=== PATIENT | female | born 1960 | race Caucasian/White ===

== ENCOUNTER 2020-01-20 07:59 | Day surgery (SDC) | payer BC ==
[~2020-01-20 07:59] MED LIST: Lactated Ringers 1,000 ML IV SCH; Lidocaine 1% 4 ML ONE; Lidocaine 1%/Sod Bicarbonate in NS 8.4% 1 ML Syringe IDERM PRN; Midazolam 1 MG/ML 2 ML SDV ONE; Propofol 200 MG/20 ML SDV ONE; Sodium Chloride 0.9% 10 ML Syringe FLUSH PRN; fentaNYL 100 MCG/2 ML SDV ONE
--- NOTE | 2020-01-20 08:27 | PCM.PREANE ---
Preanesthetic Assessment - Procedure Proposed Procedure: colonoscopy and ugi - Anesthesia/Transfusion/Family Hx Anesthesia History: Prior Anesthesia Without Reaction Family History of Anesthesia Reaction: No Transfusion History: No Prior Transfusion(s) - Review of Systems General: No Symptoms Pulmonary: Other (cold starting- can feel glands starting to swell) Cardiovascular: No Symptoms, Dyspnea on Exertion (because I am overweight) Gastrointestinal: No Symptoms Neurological: No Symptoms Other: Reports: Depression, Anxiety - Physical Assessment NPO Status Date: 01/20/20 (439 finished prep) NPO Status Time: 04:40 Vital Signs: 146/83 77 96% 19 98.8 Height: 5 ft 11 in Weight: 126 kg ASA Class: 2 Mental Status: Alert & Oriented x3 Airway Class: Mallampati = 2 Dentition: Reports: Normal Dentition Thyro-Mental Finger Breadths: 3 Mouth Opening Finger Breadths: 3 ROM/Head Extension: Full Lungs: Clear to Auscultation, Normal Respiratory Effort Cardiovascular: Regular Rate, Regular Rhythm, No Murmurs - Allergies Allergies/Adverse Reactions: Allergies Allergy/AdvReac Type Severity Reaction Status Date / Time No Known Allergies Allergy Verified 01/19/20 13:24 - Blood Blood Available: No - Acknowledgements Anesthesia Type Planned: MAC Pt an Appropriate Candidate for the Planned Anesthesia: Yes Alternatives and Risks of Anesthesia Discussed w Pt/Guardian: Yes Pt/Guardian Understands and Agrees with Anesthesia Plan: Yes PreAnesthesia Questionnaire HEENT History: Reports: Impaired Vision Cardiovascular History: Reports: Other (See Below) Other Cardiovascular History: fluid retention- prn Respiratory History: Reports: None Gastrointestinal History: Reports: Other (See Below) Other Gastrointestinal History: dysphagia Genitourinary History: Reports: Urinary Incontinence [place] History: Reports: Other (See Below) Other OB/BYN History: hot flashes, post menopausal bleeding, abnormal uterine bleeding, Musculoskeletal History: Reports: Other (See Below) Other Musculoskeletal History: left hip trochanteric bursitis, joint pain, myalgia, joint pain, plantar fasciitis, left fibula fracutre Neurological History: Reports: None Psychiatric History: Reports: Anxiety, Depression Endocrine/Metabolic History: Reports: Obesity/BMI 30+, Vitamin D Deficiency Hematologic History: Reports: None Immunologic History: Reports: None Oncologic (Cancer) History: Reports: None Dermatologic History: Reports: Other (See Below) Other Dermatologic History: alopecia, eczema, skin tags - Past Surgical History Head Surgeries/Procedures: Reports: None HEENT Surgical History: Reports: None Cardiovascular Surgical History: Reports: None Respiratory Surgical History: Reports: None GI Surgical History: Reports: None Female Surgical History: Reports: None Male Surgical History: Reports: None Endocrine Surgical History: Reports: None Neurological Surgical History: Reports: None Musculoskeletal Surgical History: Reports: Ganglion Cyst, Other (See Below) Other Musculoskeletal Surgeries/Procedures:: right foot bunionectomy Oncologic Surgical History: Reports: None Dermatological Surgical History: Reports: None - SUBSTANCE USE Smoking Status *Q: Never Smoker Tobacco Use Within Last Twelve Months: No Second Hand Smoke Exposure: No Days Per Week of Alcohol Use: 1 Recreational Drug Use History: No - HOME MEDS Home Medications: Home Meds Amitriptyline [Elavil] 10 mg PO BEDTIME PRN 05/21/16 [History] Cholecalciferol (Vitamin D3) [Vitamin D3] 2,000 unit PO DAILY 01/19/20 [History] Escitalopram [Lexapro] 10 mg PO DAILY 01/19/20 [History] Multivitamin [Daily Multiple Vitamin] 1 tab PO DAILY 01/19/20 [History] Fairview-3/DHA/Epa/Fish Oil [[place]view 3 500 Softgel] 1 cap PO DAILY 01/19/20 [History] Triamcinolone Acetonide [Triamcinolone Acetonide 0.1% Crm] 1 dose TOP BID PRN [History] - CURRENT (IN HOUSE) MEDS Current Meds: Current Medications Lactated Ringer's (Ringers, Lactated) 1,000 mls @ 125 mls/hr IV ASDIRECTED GRANT Stop: 01/20/20 23:00 Lidocaine/Sodium Bicarbonate (Buffered Lidocaine 1% In Ns 8.4%) 0.25 ml IDERM ONETIME PRN PRN Reason: Prior to IV Start Stop: 01/20/20 18:00 Sodium Chloride (Saline Flush) 10 ml FLUSH ASDIRECTED PRN PRN Reason: Keep Vein Open Stop: 01/20/20 18:00 Discontinued Medications Fentanyl (Sublimaze) Confirm Administered Dose 100 mcg .ROUTE .STK-MED ONE Stop: 01/20/20 07:13 Lidocaine HCl (Xylocaine-Mpf 1%) Confirm Administered Dose 4 mls @ as directed .ROUTE .STK-MED ONE Stop: 01/20/20 07:15 Midazolam HCl (Versed 1 Mg/Ml) Confirm Administered Dose 2 mg .ROUTE .STK-MED ONE Stop: 01/20/20 07:13 Propofol (Diprivan 20 Ml) Confirm Administered Dose 200 mg .ROUTE .STK-MED ONE Stop: 01/20/20 07:12 Propofol (Diprivan 20 Ml) Confirm Administered Dose 200 mg .ROUTE .STK-MED ONE Stop: 01/20/20 07:14
[2020-01-20] MEDS ORDERED: Glycopyrrolate 0.2 MG/ML SDV ONE (09:28)
[2020-01-20] MEDS ORDERED: Propofol 200 MG/20 ML SDV ONE ×2 (09:30→09:51)
--- NOTE | 2020-01-20 10:09 | PCM48HPAN ---
Post Anesthesia Note - EVALUATION WITHIN 48HRS OF ANESTHETIC Vital Signs in Normal Range: Yes Patient Participated in Evaluation: Yes Respiratory Function Stable: Yes Airway Patent: Yes Cardiovascular Function Stable: Yes Hydration Status Stable: Yes Pain Control Satisfactory: Yes Nausea and Vomiting Control Satisfactory: Yes Mental Status Recovered: Yes Vital Signs: Last Vital Signs Temp 37.1 C 01/20/20 08:10 Pulse 72 01/20/20 08:10 Resp 19 01/20/20 08:10 BP 146/83 H 01/20/20 08:10 Pulse Ox 96 01/20/20 08:10
--- NOTE | 2020-01-20 10:14 | PCM.PRNOTE ---
- Free Text/Narrative Note: Date: 01/20/2020 Procedure: diagnostic upper endoscopy, screening colonoscopy Endoscopist: Amaury Zimmer MD Findings: polypoid lesion at gastroesophageal junction. No hiatal hernia. No evidence of esophagitis or metaplasia. A few pedunculated polyps were removed on colonoscopy. Prep was fair. Detailed Report: The patient was taken to the endoscopy suite and placed in left lateral decubitus position. Time out was performed and monitored anesthesia care was initiated. A bite-block was placed and lubricated endoscope inserted into the mouth and advanced to the second portion of the duodenum. Duodenal mucosal appeared normal. The pylorus and antrum appeared grossly normal, there was no ulceration or inflammatory change noted of the gastric mucosa. On retroflexion , the fundus appeared normal, there is no evidence of hiatal hernia. On withdrawal of the scope into the distal esophagus, a polypoid lesion was noted at the anterolateral aspect near the Z line. A sample biopsy of this lesion was obtained with cold forceps. No additional esophageal pathology was noted on withdrawal of the scope. Air was suctioned from the stomach and the esophagus as the scope was withdrawn, and attention was turned to colonoscopy. Visual inspection of the anus revealed no gross abnormality. Digital rectal exam was unremarkable. A lubricated colonoscope was inserted transanally and advanced to the cecum. The ileocecal valve and appendiceal orifice were visualized. The prep was fair, with a fair amount of jacobson liquid yellow effluent throughout. The mucosal surfaces were carefully inspected on slow withdrawal of the scope. A few polyps were identified, one subcentimeter polyp in the a sending colon was biopsied with hot forceps, and the base was fulgurated. A larger pedunculated polyp was identified in the proximal sigmoid colon, this was taken with a snare without cautery applied due to safety concern /based on the location of the polyp. Just distal to this polyp, smaller polyp was identified which was taken with a snare as well with heat applied. There were very few scattered diverticula noted, most prominently in the sigmoid colon. On retroflexion of the scope within the rectum no hemorrhoidal disease was appreciated. The patient tolerated the procedure well. Amaury Zimmer MD General Surgery
[2020-01-20 10:53] VITALS: BP 134/76; PULSE 73
== END 2020-01-20 11:03 | disposition home or self-care (01) ==
LOC: JD.SDS 07:59
PROVIDERS: ATTEND Surgery
DX: Z12.11 Encounter for screening for malignant neoplasm of colon (principal); D12.5 Benign neoplasm of sigmoid colon; K20.9 Esophagitis, unspecified; I51.89 Other ill-defined heart diseases; K31.7 Polyp of stomach and duodenum; K57.30 Diverticulosis of large intestine without perforation or abscess without bleeding; F41.8 Other specified anxiety disorders; E66.01 Morbid (severe) obesity due to excess calories; Z79.899 Other long term (current) drug therapy; Z68.38 Body mass index [BMI] 38.0-38.9, adult
CPT/HCPCS: 00813; J2001; J2250; J2704; J3010; J3490; J7120